=== PATIENT | female | born 1990 | race Caucasian/White ===

== ENCOUNTER 2021-07-01 13:26 | Observation (INO) | payer MEDICAID, OTHER ==
[2021-07-01 16:21] LABS: Basophils # (auto) 0 10 ^3/uL (0-0.2); Basophils % (auto) 0.3 % (0.0-2.0); Eosinophils # (auto) 0 10 ^3/uL (0-0.8); Monocytes # (auto) 0.6 10 ^3/uL (0-1.3); Neutrophils # (auto) 4.8 10 ^3/uL (1.6-8.6); Red Cell Distribution Width 14.9 % (11.8-14.3)
[2021-07-01 16:22] LABS: Eosinophils % (auto) 0.1 % (0.0-7.0); Hematocrit 28.8 % (36.0-46.0); Hemoglobin 9.3 g/dL (12.2-16.2); Lymphocytes % (auto) 27.2 % (10.0-50.0); Mean Corpuscular Hemoglobin 24.8 pg (28.0-32.0); Mean Corpuscular Hgb Conc. 32.2 g/dL (32.0-36.0); Mean Corpuscular Volume 77.1 fL (80.0-100.0); Monocytes % (auto) 7.9 % (0.0-12.0); Neutrophils % (auto) 64.5 % (37.0-80.0); Nucleated Red Blood Cells % 0.2 %; Red Blood Cells 3.73 10^6/uL (4.0-5.20); White Blood Cell 7.5 10^3/uL (4.4-10.8)
[2021-07-01 16:26] LABS: Urine Bacteria FEW /hpf (None Seen); Urine Blood 1+ /uL (Negative); Urine Hyaline Cast FEW /lpf (0 - 2); Urine Mucus FEW (None Seen); Urine Specific Gravity 1.027 (1.001-1.035); Urine WBC 31 /hpf (0 - 5); Urine WBC Clumps PRESENT /hpf (None Seen)
[2021-07-01 16:36] LABS: Albumin 2.2 g/dL (3.4-5.0); BUN/Creatinine Ratio 14.5; Calcium 8.5 mg/dL (8.5-10.1)
[2021-07-01 16:39] LABS: Bilirubin, Total 0.2 mg/dL (0.2-1.0); Total Protein 6.1 g/dL (6.4-8.2)
[2021-07-01 16:58] LABS: INR 0.96 (0.9-1.15); Partial Thromboplastin Time 29.5 sec (23.6-33.0)
[2021-07-01] MEDS ORDERED: PREN1TAB71 OR (17:31)
[2021-07-02 07:06] LABS: Rubella Antibodies, IgG 2.27 index (Immune >0.99)
[2021-07-02 08:06] LABS: RPR Non Reactive (Non Reactive)
== END 2021-07-01 17:45 | disposition home or self-care (01) ==
LOC: UNDOADMOB 13:26 → LDRP 13:26
PROVIDERS: ADMIT Obstetrics & Gynecology; ATTEND Obstetrics & Gynecology
DX: O24.419 Gestational diabetes mellitus in pregnancy, unspecified control (principal); O26.893 Other specified pregnancy related conditions, third trimester; R60.9 Edema, unspecified; O99.333 Smoking (tobacco) complicating pregnancy, third trimester; F17.210 Nicotine dependence, cigarettes, uncomplicated; Z3A.34 34 weeks gestation of pregnancy
CPT/HCPCS: 36415; 59025; 76805; 80053; 81001; 81002; 85025; 85610; 85730; 86592; 86703; 86762; 86850; 86900; 86901; 87340; G0378

== ENCOUNTER → 2021-07-01 | Outpatient (CLI) | payer MEDICAID ==
[~2021-07-01] MED LIST: PREN1TAB71 OR
[2021-07-01 14:38] LABS: Amphetamine Screen, Urine POSITIVE (NEGATIVE); Barbiturate Scree,Urine NEGATIVE (NEGATIVE); Benzodiazephine Screen, Urine NEGATIVE (NEGATIVE); Cocaine Screen, Urine NEGATIVE (NEGATIVE); Opiate Scree,Urine POSITIVE (NEGATIVE); Phencyclidine Screen, Urine NEGATIVE (NEGATIVE)
[2021-07-01 14:45] LABS: Cannabinoid Screen, Urine POSITIVE (NEGATIVE)
== END | disposition home or self-care (01) ==
LOC: LAB 14:03
PROVIDERS: ATTEND Obstetrics & Gynecology
DX: Z34.80 Encounter for supervision of other normal pregnancy, unspecified trimester (principal)
CPT/HCPCS: 80307

== ENCOUNTER 2021-08-01 12:50 | Inpatient (IN) | payer MEDICAID ==
[~2021-08-01] VITALS: Ht 157.5 cm; Wt 83.9 kg
[2021-08-01] VITALS (13 sets, daily range): BP systolic 134–164; BP diastolic 81–103
[2021-08-01] MEDS ORDERED: hydrALAZINE HCL 20 MG/ML VL IV STA (13:05)
[2021-08-01] MEDS ORDERED: hydrALAZINE HCL 20 MG/ML VL ONE (13:12)
[2021-08-01] MEDS ORDERED: LACTATED RINGER'S 1,000 ML IV SCH ×2 (13:15→14:15)
[2021-08-01] MEDS ORDERED: TERBUTALINE SULFATE 1 MG/ML 1ML VIAL SC ONE (13:26)
[2021-08-01] MEDS ORDERED: MAGNESIUM SULFATE 40MG/ML 1,000 ML IV ONE (13:26)
[2021-08-01] MEDS ORDERED: MAGNESIUM SULFATE 100 ML IV ONE ×2 (13:26→13:30)
[2021-08-01] MEDS: TERBUTALINE SULFATE 1 MG/ML 1ML VIAL SC SCH ×3 (13:35→14:23)
[2021-08-01] MEDS ORDERED: ceFAZolin 1GM/50ML 50 ML IV STA (13:40)
[2021-08-01] MEDS ORDERED: ceFAZolin 1GM/50ML 50 ML IV ONE ×2 (13:45→14:15)
[2021-08-01] MEDS ORDERED: SODIUM CHLORIDE 0.9% 1,000 ML IV SCH (14:15)
[2021-08-01] MEDS ORDERED: MORPHINE SULFATE 4 MG/ML SYR/VIAL IV PRN (14:15)
[2021-08-01] MEDS ORDERED: LACTATED RINGER'S 1,000 ML IV ONE (14:15)
[2021-08-01 14:18] LABS: Basophils # (auto) 0 10 ^3/uL (0-0.2); Eosinophils # (auto) 0 10 ^3/uL (0-0.8); Mean Corpuscular Hgb Conc. 30.9 g/dL (32.0-36.0); Monocytes # (auto) 0.7 10 ^3/uL (0-1.3); Monocytes % (auto) 8.6 % (0.0-12.0)
[2021-08-01 14:19] LABS: Basophils % (auto) 0.2 % (0.0-2.0); Eosinophils % (auto) 0.1 % (0.0-7.0); Hematocrit 25.9 % (36.0-46.0); Lymphocytes % (auto) 37.3 % (10.0-50.0); Mean Corpuscular Hemoglobin 23.4 pg (28.0-32.0); Mean Corpuscular Volume 75.8 fL (80.0-100.0); Neutrophils # (auto) 4.3 10 ^3/uL (1.6-8.6); Neutrophils % (auto) 53.8 % (37.0-80.0); Nucleated Red Blood Cells % 0.6 %; Red Blood Cells 3.41 10^6/uL (4.0-5.20); Red Cell Distribution Width 16.1 % (11.8-14.3); White Blood Cell 8.1 10^3/uL (4.4-10.8)
[2021-08-01] MEDS: MAGNESIUM SULFATE 40MG/ML 1,000 ML IV SCH ×2 (14:22→17:55)
[2021-08-01 14:30] LABS: Urine Bacteria FEW /hpf (None Seen); Urine Blood 2+ /uL (Negative); Urine Hyaline Cast FEW /lpf (0 - 2); Urine Mucus FEW (None Seen); Urine Specific Gravity 1.014 (1.001-1.035); Urine WBC 84 /hpf (0 - 5)
[2021-08-01 14:43] LABS: Alcohol, Urine < 3.0 mg/dL (0-10); Amphetamine Screen, Urine POSITIVE (NEGATIVE); Barbiturate Scree,Urine NEGATIVE (NEGATIVE); Benzodiazephine Screen, Urine NEGATIVE (NEGATIVE); Cannabinoid Screen, Urine NEGATIVE (NEGATIVE); Cocaine Screen, Urine NEGATIVE (NEGATIVE); Opiate Scree,Urine POSITIVE (NEGATIVE); Phencyclidine Screen, Urine NEGATIVE (NEGATIVE)
[2021-08-01 14:46] LABS: INR 1.53 (0.9-1.15); Partial Thromboplastin Time 47.4 sec (23.6-33.0)
[2021-08-01] MEDS ORDERED: SUCCINYLCHOLINE CHLORIDE 20 MG/ML 10ML VIAL IV ONE (15:01)
[2021-08-01] MEDS ORDERED: LIDOCAINE 2% (LOCAL ANESTH.) PF 5ml SDV ONE (15:02)
[2021-08-01] MEDS ORDERED: PROPOFOL 10 MG/ML 20 ML IV ONE (15:02)
[2021-08-01] MEDS ORDERED: ONDANSETRON HCL 4 MG/2 ML VIAL ONE (15:02)
[2021-08-01] MEDS ORDERED: DexAMETHasone SOD PHOS 10MG/1ML VIAL INJ ONE (15:02)
[2021-08-01] MEDS ORDERED: fentaNYL CITRATE 100 MCG/2 ML VL ONE (15:04)
[2021-08-01] MEDS ORDERED: ePHEDrine SULFATE 50 MG/ML AMP ONE (15:31)
[2021-08-01] MEDS ORDERED: BUPIVACAINE 0.25% INJ 50ML VIAL ONE (15:37)
[2021-08-01] MEDS ORDERED: HYDROmorphone HCL 2 MG/ML VL IV PRN ×2 (16:00)
[2021-08-01] MEDS ORDERED: hydrALAZINE HCL 20 MG/ML VL IV PRN ×2 (16:00→17:45)
[2021-08-01] MEDS ORDERED: LABETALOL HCL 5 MG/ML 4ML SYRINGE IV PRN (16:00)
[2021-08-01] MEDS ORDERED: ONDANSETRON HCL 4 MG/2 ML VIAL IV PRN (16:00)
[2021-08-01] MEDS ORDERED: HYDROmorphone HCL 2 MG/ML VL ONE (16:15)
[2021-08-01] MEDS ORDERED: HYDROcodone-ACET 10/325MG TAB PO PRN (18:00)
[2021-08-01] MEDS ORDERED: MORPHINE SULFATE INJECTION 2 MG/ML SYRG IV PRN (18:00)
[2021-08-01 18:41] LABS: Albumin 1.9 g/dL (3.4-5.0); Calcium 8.9 mg/dL (8.5-10.1); Potassium 4.4 mmol/L (3.5-5.1)
[2021-08-01 18:44] LABS: BUN/Creatinine Ratio 10.8; Bilirubin, Total 0.5 mg/dL (0.2-1.0); Uric Acid 6.2 mg/dL (2.6-6.0)
[2021-08-01] MEDS: ACETAMINOPHEN IV 1000 MG/100ML (10MG/ML) IV PRN (19:24)
[2021-08-01] MEDS ORDERED: ceFAZolin 1GM/50ML 50 ML IV SCH (22:30)
[2021-08-01] MEDS: HYDROmorphone HCL 2 MG/ML VL IV PRN (23:28)
[2021-08-02] VITALS (12 sets, daily range): BP systolic 119–155; BP diastolic 73–96
[2021-08-02] MEDS: ceFAZolin 1GM/50ML 50 ML IV SCH ×3 (01:46→17:39)
[2021-08-02] MEDS: KETOROLAC TROMETH 30 MG/ML 1ML VIAL IV PRN ×2 (01:57→10:45)
[2021-08-02] MEDS: HYDROmorphone HCL 2 MG/ML VL IV PRN ×2 (03:12→07:59)
[2021-08-02] MEDS: ACETAMINOPHEN IV 1000 MG/100ML (10MG/ML) IV PRN (06:20)
[2021-08-02 07:55] LABS: Eosinophils # (auto) 0 10 ^3/uL (0-0.8); Hematocrit 21.5 % (36.0-46.0); Mean Corpuscular Hgb Conc. 31.7 g/dL (32.0-36.0); White Blood Cell 17.1 10^3/uL (4.4-10.8)
[2021-08-02 07:57] LABS: Basophils # (auto) 0 10 ^3/uL (0-0.2); Basophils % (auto) 0.1 % (0.0-2.0); Lymphocytes # (auto) 2.2 10 ^3/uL (0.4-5.4); Lymphocytes % (auto) 12.9 % (10.0-50.0); Monocytes # (auto) 1.9 10 ^3/uL (0-1.3); Nucleated Red Blood Cells % 0.1 %; Red Blood Cells 2.89 10^6/uL (4.0-5.20); Red Cell Distribution Width 16.3 % (11.8-14.3)
[2021-08-02] MEDS ORDERED: LACTATED RINGER'S 1,000 ML IV SCH (08:00)
[2021-08-02] MEDS: MAGNESIUM SULFATE 40MG/ML 1,000 ML IV SCH (08:04)
[2021-08-02] MEDS ORDERED: SIMETHICONE 80 MG CHEWABLE TABLET PO PRN (08:15)
[2021-08-02] MEDS ORDERED: METHADONE HCL 10 MG TAB PO ONE ×2 (08:15→12:00)
[2021-08-02 08:16] LABS: Hemoglobin 6.8 g/dL (12.2-16.2); Mean Corpuscular Hemoglobin 23.5 pg (28.0-32.0); Mean Corpuscular Volume 74.2 fL (80.0-100.0)
[2021-08-02 12:23] LABS: Basophils # (auto) 0 10 ^3/uL (0-0.2); Eosinophils # (auto) 0 10 ^3/uL (0-0.8)
[2021-08-02 12:27] LABS: Basophils % (auto) 0.2 % (0.0-2.0); Hematocrit 20.4 % (36.0-46.0); Lymphocytes # (auto) 2.1 10 ^3/uL (0.4-5.4); Lymphocytes % (auto) 11.6 % (10.0-50.0); Mean Corpuscular Hgb Conc. 31.3 g/dL (32.0-36.0); Monocytes # (auto) 1.5 10 ^3/uL (0-1.3); Monocytes % (auto) 8.2 % (0.0-12.0); Neutrophils # (auto) 14.4 10 ^3/uL (1.6-8.6); Nucleated Red Blood Cells % 0.2 %; Red Cell Distribution Width 16.3 % (11.8-14.3)
[2021-08-02 13:08] LABS: Hemoglobin 6.4 g/dL (12.2-16.2); Mean Corpuscular Hemoglobin 23.7 pg (28.0-32.0); Mean Corpuscular Volume 75.7 fL (80.0-100.0)
[2021-08-02] MEDS: FERROUS SULFATE 325mg EC TAB PO SCH (17:40)
[2021-08-02] MEDS: DOCUSATE SOD 100 MG CAP PO SCH (21:50)
[2021-08-02] MEDS ORDERED: HYDROcodone-ACET 5/325MG TAB PO PRN (21:58)
[2021-08-02] MEDS ORDERED: ZOLPIDEM TARTRATE 5 MG TAB PO PRN (22:00)
[2021-08-02] MEDS: HYDROcodone-ACET 5/325MG TAB PO PRN (22:16)
[2021-08-03] VITALS (9 sets, daily range): BP systolic 123–176; BP diastolic 69–97
[2021-08-03 01:06] LABS: Rubella Antibodies, IgG 1.37 index (Immune >0.99)
[2021-08-03] MEDS: HYDROcodone-ACET 5/325MG TAB PO PRN ×3 (03:32→22:01)
[2021-08-03] MEDS: IBUPROFEN 600 MG TAB PO SCH ×4 (06:00→18:00)
[2021-08-03] MEDS: FERROUS SULFATE 325mg EC TAB PO SCH ×2 (08:14→18:06)
[2021-08-03 09:17] LABS: Basophils # (auto) 0 10 ^3/uL (0-0.2); Basophils % (auto) 0.2 % (0.0-2.0); Eosinophils # (auto) 0 10 ^3/uL (0-0.8); Eosinophils % (auto) 0.1 % (0.0-7.0); Hematocrit 17.4 % (36.0-46.0); Lymphocytes # (auto) 3.6 10 ^3/uL (0.4-5.4); Lymphocytes % (auto) 26.4 % (10.0-50.0); Mean Corpuscular Hgb Conc. 31.5 g/dL (32.0-36.0); Monocytes # (auto) 1.1 10 ^3/uL (0-1.3); Monocytes % (auto) 8.2 % (0.0-12.0); Neutrophils # (auto) 8.9 10 ^3/uL (1.6-8.6); Neutrophils % (auto) 65.1 % (37.0-80.0); Nucleated Red Blood Cells % 0.2 %; Red Blood Cells 2.31 10^6/uL (4.0-5.20); Red Cell Distribution Width 16.5 % (11.8-14.3); White Blood Cell 13.7 10^3/uL (4.4-10.8)
[2021-08-03 09:22] LABS: Mean Corpuscular Hemoglobin 23.8 pg (28.0-32.0); Mean Corpuscular Volume 75.4 fL (80.0-100.0)
[2021-08-03 09:26] LABS: Hemoglobin 5.5 g/dL (12.2-16.2)
[2021-08-03] MEDS ORDERED: hydrALAZINE HCL 20 MG/ML VL IV PRN (15:30)
[2021-08-03] MEDS ORDERED: NICOTINE 14 MG/24HR TOPICAL PATCH TD ONE (17:15)
[2021-08-03] MEDS ORDERED: FUROSEMIDE 20 MG/2 ML VIAL IV ONE (17:15)
[2021-08-03 18:59] LABS: Albumin 1.9 g/dL (3.4-5.0); Calcium 7.9 mg/dL (8.5-10.1); Potassium 4.9 mmol/L (3.5-5.1)
[2021-08-03 19:37] LABS: Bilirubin, Total 0.2 mg/dL (0.2-1.0); Total Protein 5.8 g/dL (6.4-8.2)
[2021-08-03] MEDS: DOCUSATE SOD 100 MG CAP PO SCH (22:00)
[2021-08-04] MEDS: IBUPROFEN 600 MG TAB PO SCH ×3 (00:32→12:00)
[2021-08-04] MEDS: HCTZ 25 MG TAB PO SCH ×2 (00:57→09:53)
[2021-08-04 02:19] LABS: Eosinophils # (auto) 0 10 ^3/uL (0-0.8); Hematocrit 23.1 % (36.0-46.0); Hemoglobin 7.5 g/dL (12.2-16.2); Lymphocytes # (auto) 2.1 10 ^3/uL (0.4-5.4)
[2021-08-04 02:21] LABS: Basophils # (auto) 0 10 ^3/uL (0-0.2); Basophils % (auto) 0.4 % (0.0-2.0); Eosinophils % (auto) 0.3 % (0.0-7.0); Lymphocytes % (auto) 17.1 % (10.0-50.0); Mean Corpuscular Hemoglobin 26.1 pg (28.0-32.0); Mean Corpuscular Hgb Conc. 32.5 g/dL (32.0-36.0); Mean Corpuscular Volume 80.3 fL (80.0-100.0); Monocytes % (auto) 7.8 % (0.0-12.0); Neutrophils # (auto) 9.1 10 ^3/uL (1.6-8.6); Neutrophils % (auto) 74.4 % (37.0-80.0); Nucleated Red Blood Cells % 0.1 %; Red Blood Cells 2.88 10^6/uL (4.0-5.20); Red Cell Distribution Width 18.5 % (11.8-14.3); White Blood Cell 12.3 10^3/uL (4.4-10.8)
[2021-08-04 02:55] VITALS: BP 150/90
[2021-08-04] MEDS ORDERED: IBU600T PO (07:21)
[2021-08-04] MEDS ORDERED: HYDR25TA5 PO (07:21)
[2021-08-04] MEDS ORDERED: DOCU100C10 PO (07:21)
[2021-08-04] MEDS ORDERED: FER325T PO (07:21)
[2021-08-04 07:30] VITALS: BP 174/115
[2021-08-04 08:06] VITALS: BP 170/91
[2021-08-04] MEDS: FERROUS SULFATE 325mg EC TAB PO SCH (08:08)
[2021-08-04] MEDS: HYDROcodone-ACET 5/325MG TAB PO PRN (09:54)
[2021-08-04] MEDS ORDERED: LABETALOL HCL 200 MG TAB PO SCH (10:00)
[2021-08-04 11:30] VITALS: BP 125/84
[2021-08-04] MEDS ORDERED: LABE200T6 PO (13:37)
== END 2021-08-04 14:20 | disposition home or self-care (01) | DRG 540 ==
LOC: LDRP 12:50 → OBSVTOIN 12:52 → LDRP 15:42
PROVIDERS: ADMIT Obstetrics & Gynecology; ATTEND Obstetrics & Gynecology
PROC: 10D00Z1 Extraction of Products of Conception, Low, Open Approach (ICD-10-PCS; principal; 2021-08-01 15:05)
PROC: 30233N1 Transfusion of Nonautologous Red Blood Cells into Peripheral Vein, Percutaneous Approach (ICD-10-PCS; 2021-08-03)
DX: O13.4 Gestational [pregnancy-induced] hypertension without significant proteinuria, complicating childbirth (principal); U07.1 COVID-19; O99.324 Drug use complicating childbirth; E87.70 Fluid overload, unspecified; O98.52 Other viral diseases complicating childbirth; O99.334 Smoking (tobacco) complicating childbirth; O99.284 Endocrine, nutritional and metabolic diseases complicating childbirth; F11.20 Opioid dependence, uncomplicated; O32.1XX0 Maternal care for breech presentation, not applicable or unspecified; O34.211 Maternal care for low transverse scar from previous cesarean delivery; O99.02 Anemia complicating childbirth; F17.210 Nicotine dependence, cigarettes, uncomplicated; Z37.0 Single live birth; Z3A.38 38 weeks gestation of pregnancy
CPT/HCPCS: 36415; 36430; 59025; 80053; 80307; 81001; 81002; 83735; 83880; 84112; 84550; 85025; 85384; 85610; 85730; 86592; 86703; 86762; 86850; 86900; 86901; 86920; 87340; 87426; 93306; 94760; 96360; 96361; 96365; 96366; 96374; 96375; G0378; J0131; J0330; J0690; J1100; J1885; J2001; J2405; J2704; J3490